=== PATIENT | female | born 1945 | race Two or more races ===

== ENCOUNTER 2023-11-02 21:47 | Inpatient (IN) | payer OTHER, BC ==
[~2023-11-02] VITALS: Ht 157.5 cm; Wt 83.9 kg
[2023-11-03 03:59] LABS: URINE APPEARANCE Cloudy; URINE BILIRRUBIN Negative (NEGATIVE); URINE BLOOD Negative; URINE COLOR Yellow; URINE GLUCOSE Negative (NEGATIVE); URINE LEUKOCYTE Moderate; URINE NITRATE Negative; URINE PROTEIN Negative (NEGATIVE)
[2023-11-03 04:03] LABS: URINE BACTERIA 2592.9 uL (0.0-1933); URINE EPITHELIAL CELLS 52.8 uL (0.0-38.8); URINE RBC 10.2 uL (0.0-20.8); URINE WBC 290.9 uL (0.0-23.2)
[2023-11-03 04:10] LABS: INR 0.95; PARTIAL THROMBOPLASTIN TIME 22.3 SECONDS (22.0-34.0)
[2023-11-03 04:32] LABS: URINE SPERM A
[2023-11-03 04:33] LABS: URINE EPITHELIAL CELLS 0-4 /HPF
[2023-11-03 04:35] LABS: HEMOGLOBIN 10.3 g/dL (12.0-15.00); MEAN CELL VOLUME 81.4 fL (80.00-100.00); MEAN CORPUSCULAR HEMOGLOBIN 26.1 pg (27.00-32.0); MEAN CORPUSCULAR HGB CONC 32.1 g/dl (32.0-36.0); PLATELET COUNT 291 K/uL (150-450); RED BLOOD COUNT 3.93 M/uL (4.00-6.00); RED CELL DISTRIBUTION WIDTH 18.2 % (11.5-14.5)
[2023-11-03 04:49] LABS: ALBUMIN 3.4 gm/dL (3.4-5.0); BILIRUBIN TOTAL 0.23 mg/dL (0.3-1.2); CALCIUM 8.5 mg/dL (8.5-10.1); CREATININE SERUM 0.88 mg/dL (0.55-1.02); GFR 62.64; GLOBULINA 3.2 G/DL (2.4-3.5); POTASSIUM 4.15 mEq/L (3.5-5.1); TOTAL PROTEIN 6.6 gm/dL (6.4-8.2)
[2023-11-04 05:29] LABS: MEAN CELL VOLUME 83.1 fL (80.00-100.00); MEAN CORPUSCULAR HGB CONC 32.5 g/dl (32.0-36.0); PLATELET COUNT 239 K/uL (150-450); RED BLOOD COUNT 3.61 M/uL (4.00-6.00); RED CELL DISTRIBUTION WIDTH 17.6 % (11.5-14.5)
[2023-11-04 05:34] LABS: ALBUMIN 2.8 gm/dL (3.4-5.0); BILIRUBIN TOTAL 0.59 mg/dL (0.3-1.2); CALCIUM 7.8 mg/dL (8.5-10.1); CREATININE SERUM 0.61 mg/dL (0.55-1.02); GFR 95.61; GLOBULINA 2.7 G/DL (2.4-3.5); POTASSIUM 3.78 mEq/L (3.5-5.1); TOTAL PROTEIN 5.5 gm/dL (6.4-8.2)
[2023-11-04 05:39] LABS: HEMOGLOBIN 9.8 g/dL (12.0-15.00); MEAN CORPUSCULAR HEMOGLOBIN 27.1 pg (27.00-32.0)
[2023-11-04] MEDS ORDERED: LEVOTHYROXINE112 MCG PO (12:35)
[2023-11-05 06:44] LABS: HEMATOCRIT 29.4 % (36.0-45.00); HEMOGLOBIN 9.5 g/dL (12.0-15.00); MEAN CELL VOLUME 83.7 fL (80.00-100.00); MEAN CORPUSCULAR HGB CONC 32.3 g/dl (32.0-36.0); PLATELET COUNT 229 K/uL (150-450); RED BLOOD COUNT 3.52 M/uL (4.00-6.00); RED CELL DISTRIBUTION WIDTH 17.9 % (11.5-14.5)
[2023-11-06 09:21] LABS: HEMATOCRIT 25.8 % (36.0-45.00); MEAN CELL VOLUME 83.8 fL (80.00-100.00); MEAN CORPUSCULAR HGB CONC 32.7 g/dl (32.0-36.0); PLATELET COUNT 199 K/uL (150-450); RED BLOOD COUNT 3.08 M/uL (4.00-6.00); RED CELL DISTRIBUTION WIDTH 16.9 % (11.5-14.5)
[2023-11-06 09:30] LABS: HEMOGLOBIN 8.5 g/dL (12.0-15.00); MEAN CORPUSCULAR HEMOGLOBIN 27.5 pg (27.00-32.0)
[2023-11-07 14:57] LABS: HEMOGLOBIN 9.1 g/dL (12.0-15.00); MEAN CELL VOLUME 83.6 fL (80.00-100.00); MEAN CORPUSCULAR HGB CONC 32.3 g/dl (32.0-36.0); PLATELET COUNT 225 K/uL (150-450); RED BLOOD COUNT 3.35 M/uL (4.00-6.00); RED CELL DISTRIBUTION WIDTH 17.8 % (11.5-14.5)
== END 2023-11-10 17:53 | disposition home or self-care (01) | DRG 489 ==
LOC: ER 21:47 → SURG 11-03 10:34 → MEDI 11-03 10:34 → SURG 11-04 23:37
PROVIDERS: General Practice; Internal Medicine; ADMIT Internal Medicine; ATTEND Internal Medicine
PROC: 0SQD0ZZ Repair Left Knee Joint, Open Approach (ICD-10-PCS; principal; 2023-11-03)
PROC: 0QSH04Z Reposition Left Tibia with Internal Fixation Device, Open Approach (ICD-10-PCS; 2023-11-03)
PROC: 0QSK04Z Reposition Left Fibula with Internal Fixation Device, Open Approach (ICD-10-PCS; 2023-11-03)
PROC: BQ2SZZZ Computerized Tomography (CT Scan) of Left Lower Extremity (ICD-10-PCS; 2023-11-03)
DX: S82.142A Displaced bicondylar fracture of left tibia, initial encounter for closed fracture (principal); S82.292A Other fracture of shaft of left tibia, initial encounter for closed fracture; S82.492A Other fracture of shaft of left fibula, initial encounter for closed fracture; S83.262A Peripheral tear of lateral meniscus, current injury, left knee, initial encounter; W19.XXXA Unspecified fall, initial encounter; Y92.9 Unspecified place or not applicable; Y99.9 Unspecified external cause status